=== PATIENT | male | born 1930 | race Two or more races ===

== ENCOUNTER 2017-10-19 18:20 | Inpatient (IN) | END 2017-10-26 19:30 | disposition home health service (06) | DRG 192 ==

== ENCOUNTER 2018-11-09 18:51 | Inpatient (IN) | payer MEDICARE, OTHER ==
[~2018-11-09] VITALS: Ht 165.1 cm; Wt 67.8 kg
[~2018-11-09 18:51] MED LIST: ACAR25TA8 PO; AMLO-147 PO; FENO145T37 PO; GABA100C14 PO; LEVO500T48 PO; LOSA50TA14 PO; MELO7.5T38 PO; METF500T24 PO; METO-335 PO; PRED10TA PO; SITA100T11 PO
[2018-11-09] MEDS ORDERED: TAMS-14 PO (23:02)
[2018-11-09] MEDS ORDERED: ACAR25TA8 PO (23:10)
[2018-11-09] MEDS ORDERED: ACET500C5 PO (23:10)
[2018-11-09] MEDS ORDERED: LEVO25TA6 PO (23:10)
[2018-11-09] MEDS ORDERED: SIMV20TA2 PO (23:10)
[2018-11-09] MEDS ORDERED: ALBU2.5V3 NEB (23:10)
[2018-11-09] MEDS ORDERED: ALBUTEROL/IPRATROPIUM (NEB) 3 ML AMP HHN PRN (23:30)
[2018-11-09 23:33] VITALS: Ht 165.1 cm; Wt 67.8 kg
[2018-11-09 23:37] VITALS: BP 146/70; PULSE 102; RESP 18
[2018-11-09] MEDS ORDERED: GLUCAGON 1 MG INJ IM PRN (23:45)
[2018-11-09] MEDS ORDERED: GLUCOSE GEL 15 GRAM TUBE PO PRN ×2 (23:45)
[2018-11-09] MEDS ORDERED: GLUCOSE GEL 15 GRAM TUBE BUCCAL PRN (23:45)
[2018-11-09] MEDS ORDERED: DEXTROSE 50% 50 ML SYRINGE IV PRN ×2 (23:45)
[2018-11-10 01:50] VITALS: BP 136/65; PULSE 85; RESP 18
[2018-11-10] MEDS: ACCU-CHEK XX SCH (02:00)
[2018-11-10] MEDS: PANTOPRAZOLE (EC) 40 MG TAB PO SCH (06:15)
[2018-11-10] MEDS: LEVOTHYROXINE 25 MCG TAB PO SCH (06:15)
[2018-11-10 07:37] VITALS: BP 129/57; PULSE 74; RESP 18
[2018-11-10] MEDS: ACETAMINOPHEN 325 MG TAB PO PRN (07:56)
[2018-11-10] MEDS: ACARBOSE 50 MG TAB PO SCH ×3 (08:00→17:09)
[2018-11-10] MEDS: INSULIN ASPART [NOVOLOG] 3 ML PEN SC SCH ×5 (08:19→20:39)
[2018-11-10] MEDS: GABAPENTIN 100 MG CAP PO SCH ×3 (08:28→20:35)
[2018-11-10] MEDS: METOPROLOL (XL) 25 MG TAB PO SCH (08:29)
[2018-11-10] MEDS: LINAGLIPTIN 5 MG TABLET PO SCH (08:29)
[2018-11-10] MEDS: LOSARTAN 50 MG TAB PO SCH (08:29)
[2018-11-10] MEDS ORDERED: NON-FORMULARY/PATIENT OWN MED (Sitagliptin* (Januvia*) 100 MG) PO SCH (09:00)
[2018-11-10] MEDS ORDERED: METHYLPREDNISOLONE 40 MG INJ IV SCH (09:00)
[2018-11-10] MEDS ORDERED: ACARBOSE 50 MG TAB PO SCH (09:00)
[2018-11-10 14:00] VITALS: BP 109/58; PULSE 74; RESP 18
--- NOTE | 2018-11-10 16:40 | QN ---
Documentation Comment pt seen and examined WILL RAZA MD November 10, 2018 16:40
[2018-11-10 19:46] VITALS: BP 143/71; PULSE 72; RESP 19
[2018-11-10] MEDS ORDERED: INSULIN GLARGINE [LANTus] (100 UNITS/ML) SYG SC SCH (20:00)
--- NOTE | 2018-11-10 20:59 | HP ---
DATE OF ADMISSION: 10/19/2017 CHIEF COMPLAINT: Shortness of breath. 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 on 11/08/2018 secondary to shortness of breath. According to the patient, currently , he said that he was having some headache. His blood pressure was high. He also had feeling short of breath as per [facility] notes 3 to 4 hours prior to presentation. He was able to walk 1 block wi th his cane before feeling short of breath. There, the patient had vital signs, showed temperature 3 7.3, heart rate 76, respirations 20, blood pressure 138/77. The patient was given prednisone nebs, R ocephin and azithromycin. The patient had a chest x-ray which was negative and CT which was negative for PE. The patient was transferred to [facility] due to insurance reasons. PAST MEDICAL HISTORY: 1. Diabetes. 2. Hypertension. 3. Hyperlipidemia. 4. Hypothyroidism. 5. Benign prostatic hypertrophy. 6. Interstitial lung disease, unclear etiology. 7. 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 HOME MEDICATIONS: 1. Albuterol. 2. Flomax 0.4. 3. Amlodipine 5. 4. Fenofibrate 134. 5. Losartan 50 every day. 6. Metoprolol 25 every day. 7. Simvastatin 20. 8. Gabapentin 100 t.i.d. 9. Acetaminophen. 10. Meloxicam 7.5. 11. Acarbose 25 t.i.d. with meals. 12. Levothyroxine 25. 13. Metformin 500 with meals. 14. Prednisone 20. 15. Januvia 100. SOCIAL HISTORY: No history of prior smoking, alcohol, drug use history. Lives with her niece at [facility]. ALLERGIES: NONE. FAMILY HISTORY: Noncontributory. REVIEW OF SYSTEMS: The patient complains of shortness of breath that has improved. Denies any chest pain. Denies any abdominal pain, nausea, vomiting, diarrhea. Denies any hematemesis, any melena, a ny bright red blood per rectum. PHYSICAL EXAMINATION: VITAL SIGNS: Currently, blood pressure 109/58, afebrile, heart rate 74, respirations 18, saturating 99% on 2 liters. GENERAL: The patient is awake, alert, oriented, does not appear to be in any acute distress. HEENT: Pupils equal, round, react to light. NECK: Supple. HEART: Regular rate and rhythm. LUNGS: A few rhonchi bilaterally. ABDOMEN: Soft, nontender, nondistended. EXTREMITIES: He has trace 1+ edema. DIAGNOSTIC DATA: BUN of 24, creatinine 0.70, glucose 206. LFTs within normal limit. LABORATORY DATA: White count 8.9, hemoglobin 13.0. ASSESSMENT AND PLAN: This is an 88-year-old male who presented with: 1. Shortness of breath likely secondary to interstitial lung disease exacerbation with possible comp onent of chronic obstructive pulmonary disease. No evidence of pulmonary embolism on preliminary thony d on CT PE. 2. History of interstitial lung disease. 3. Diabetes, uncontrolled. 4. Hypertension. 5. Hyperlipidemia. 6. Hypothyroidism. 7. Benign prostatic hypertrophy. PLAN: At this period of time, the patient is admitted to med/surg unit. The patient will be continu ed on prednisone nebs and also IV antibiotics and strict diabetic control. We will also get an ABG a nd a chest x-ray. Rest of the treatment will depend on the patient's hospitalization course. Dictated By: WILL JORGE/PEDRO Conf#: [id number] DID#: [id number] CC: ZHANG HARRIS MD;*End*
[2018-11-10] MEDS ORDERED: ATORVASTATIN 10 MG TAB PO SCH (21:00)
[2018-11-10] MEDS ORDERED: NON-FORMULARY/PATIENT OWN MED (Simvastatin 20 MG) PO SCH (21:00)
[2018-11-10] MEDS ORDERED: TAMSULOSIN (SR) 0.4 MG CAP PO SCH (21:00)
[2018-11-11 02:00] VITALS: BP 145/76; PULSE 78; RESP 20
[2018-11-11] MEDS: ACCU-CHEK XX SCH (02:00)
[2018-11-11] MEDS: LEVOTHYROXINE 25 MCG TAB PO SCH (06:18)
[2018-11-11] MEDS: PANTOPRAZOLE (EC) 40 MG TAB PO SCH (06:18)
[2018-11-11 07:52] VITALS: BP 132/65; PULSE 69; RESP 18
[2018-11-11] MEDS: INSULIN ASPART [NOVOLOG] 3 ML PEN SC SCH ×6 (08:17→17:13)
[2018-11-11] MEDS: ACARBOSE 50 MG TAB PO SCH ×3 (08:19→17:11)
[2018-11-11] MEDS: LINAGLIPTIN 5 MG TABLET PO SCH (08:19)
[2018-11-11] MEDS: GABAPENTIN 100 MG CAP PO SCH ×2 (08:19→12:37)
[2018-11-11] MEDS: LOSARTAN 50 MG TAB PO SCH (08:20)
[2018-11-11] MEDS: METOPROLOL (XL) 25 MG TAB PO SCH (08:20)
[2018-11-11] MEDS ORDERED: METHYLPREDNISOLONE 40 MG INJ IV SCH (09:00)
[2018-11-11] MEDS: ACETAMINOPHEN 325 MG TAB PO PRN (10:37)
[2018-11-11 10:39] VITALS: BP 149/72
--- NOTE | 2018-11-11 12:22 | PN ---
Date/Time of Note Date/Time of Note DATE: 11/11/18 TIME: 12:19 Assessment/Plan VTE Prophylaxis Risk score (from Ns)>0 risk: 3 SCD applied (from Ns): Yes SCD contraindicated: low risk/ambulating Pharmacological prophylaxis: NA/contraindicated Pharm contraindication: low risk/ambulating Lines/Catheters IV [facility] Urinary Cath still in place: No Assessment/Plan Hospital Course 1. Shortness of breath likely secondary to interstitial lung disease exacerbation with possible component of chronic obstructive pulmonary disease. No evidence of pulmonary embolism on preliminary read on CT PE. 2. Anemia 3. DM type II, uncontrolled 4. History of interstitial lung disease. 5. Hyperlipidemia. 6. Hypothyroidism. 7. Benign prostatic hypertrophy. 8. Hypertension. PLAN: At this period of time, the patient is admitted to Assessment/Plan -Sat on room air 96 -ambulation -dc today med/surg unit. -c/w prednisone wean -c/w nebs Result Diagram: 11/10/18 0536 11/10/18 0536 Results 24hrs Laboratory Tests Test 11/10/18 17:04 11/10/18 20:34 11/10/18 22:52 11/11/18 02:12 Bedside Glucose 301 H 257 H 204 Blood Gas Blood arterial Specimen Source Arterial Blood 11/10/2018 11:00: Date Drawn 59 PM Arterial Blood pH 7.378 (Temp corrected) Arterial Blood 44.6 pCO2 (Temp correct) Arterial Blood 79.9 L pO2 (Temp corrected) Arterial Blood 25.7 HCO3 Arterial Blood 0.2 Base Excess Arterial Blood 95.1 Oxygen Saturation Jose Eduardo Test ACCEPTAB Arterial Blood Right Radial Gas Puncture Site Arterial 0.2 Blood Carboxyhemo globin Arterial Blood 0.3 Methemoglobin Blood Gas A-a O2 67.1 H Differential Oxyhemoglobin 94.6 Percent Blood Gas 37.0 Temperature Blood Gas NASAL CANNULA Modality FiO2 28.0 Blood Gas MA Notified Whom Blood Gas 11/10/2018 11:10: Notified Time 33 PM Test 11/11/18 08:15 Bedside Glucose 221 H Subjective 24 Hr Interval Summary Constitutional: no complaints Respiratory: cough, shortness of breath; No no complaints, No pain, No pleuritic pain, No sputum, No wheezing, No other Exam/Review of Systems Exam Vitals Vital Signs Date Temp Pulse Resp B/P (MAP) Pulse Ox O2 O2 Flow FiO2 Time Delivery Rate 11/11/18 149/72 10:39 (97) 11/11/18 2.0 08:59 11/11/18 97.7 69 18 96 Nasal 07:52 Cannula Intake and Output 11/10/18 11/10/18 11/11/18 1515:00 23:00 07:00 IntakeIntake Total 560 ml 320 ml OutputOutput Total 600 ml 560 ml BalanceBalance -40 ml 320 ml -560 ml Constitutional: alert, oriented Head: normocephalic Eyes: nl conjunctiva Respiratory: clear to auscultation Cardiovascular: regular rate and rhythm Gastrointestinal: soft Genitourinary - Male: CVA tenderness; No nl penis, No nl scrotum, No discharge, No other Extremities: edema; No normal pulses, No calf tenderness, No cyanosis, No clubbing, No pitting pedal edema, No palpable cord, No tenderness, No other Results Results 24hrs Laboratory Tests Test 11/10/18 17:04 11/10/18 20:34 11/10/18 22:52 11/11/18 02:12 Bedside Glucose 301 H 257 H 204 Blood Gas Blood arterial Specimen Source Arterial Blood 11/10/2018 11:00: Date Drawn 59 PM Arterial Blood pH 7.378 (Temp corrected) Arterial Blood 44.6 pCO2 (Temp correct) Arterial Blood 79.9 L pO2 (Temp corrected) Arterial Blood 25.7 HCO3 Arterial Blood 0.2 Base Excess Arterial Blood 95.1 Oxygen Saturation Jose Eduardo Test ACCEPTAB Arterial Blood Right Radial Gas Puncture Site Arterial 0.2 Blood Carboxyhemo globin Arterial Blood 0.3 Methemoglobin Blood Gas A-a O2 67.1 H Differential Oxyhemoglobin 94.6 Percent Blood Gas 37.0 Temperature Blood Gas NASAL CANNULA Modality FiO2 28.0 Blood Gas NE Notified Whom Blood Gas 11/10/2018 11:10: Notified Time 33 PM Test 11/11/18 08:15 Bedside Glucose 221 H Medications Medication Current Medications Acarbose (Precose) 25 mg WITH MEALS PO Last administered on 11/11/18at 08:19; Admin Dose 25 MG; Start 11/10/18 at 08:00 Gabapentin (Neurontin) 100 mg TID PO Last administered on 11/11/18at 08:19; Admin Dose 100 MG; Start 11/10/18 at 09:00 Levothyroxine Sodium (Synthroid) 25 mcg BEFORE BREAKFAST PO Last administered on 11/11/18at 06:18; Admin Dose 25 MCG; Start 11/10/18 at 07:00 Losartan Potassium (Cozaar) 50 mg DAILY PO Last administered on 11/11/18at 08:20 ; Admin Dose 50 MG; Start 11/10/18 at 09:00 Metoprolol Succinate (Toprol Xl) 25 mg DAILY PO Last administered on 11/11/18at 08:20; Admin Dose 25 MG; Start 11/10/18 at 09:00 Tamsulosin HCl (Flomax) 0.4 mg DAILY@2100 PO Last administered on 11/10/18at 20:35; Admin Dose 0.4 MG; Start 11/10/18 at 21:00 Pantoprazole (Protonix Tab) 40 mg DAILY@06 PO Last administered on 11/11/18at 06:18; Admin Dose 40 MG; Start 11/10/18 at 06:00 Albuterol/ Ipratropium (Duoneb) 3 ml Q6H RESP THERAPY PRN HHN SHORTNESS OF BREATH; Start 11/09/18 at 23:30 Diagnostic Test (Pha) (Accu-Chek) 1 ea 02 XX ; Start 11/10/18 at 02:00 Insulin Aspart (Novolog Insulin Pen) NOVOLOG *MILD* ALGORITHM WITH MEALS BEDTIME SC Last administered on 11/11/18at 08:17; Admin Dose 2 UNIT; Start 11/10/18 at 08:00 Miscellaneous Information 1 ea NOTE XX ; Start 11/09/18 at 23:45 Glucose (Glutose) 15 gm Q15M PRN PO DECREASED GLUCOSE; Start 11/09/18 at 23:45 Glucose (Glutose) 22.5 gm Q15M PRN PO DECREASED GLUCOSE; Start 11/09/18 at 23:45 Dextrose (D50w Syringe) 25 ml Q15M PRN IV DECREASED GLUCOSE; Start 11/09/18 at 23:45 Dextrose (D50w Syringe) 50 ml Q15M PRN IV DECREASED GLUCOSE; Start 11/09/18 at 23:45 Glucagon (Glucagen) 1 mg Q15M PRN IM DECREASED GLUCOSE; Start 11/09/18 at 23:45 Glucose (Glutose) 15 gm Q15M PRN BUCCAL DECREASED GLUCOSE; Start 11/09/18 at 23:45 Atorvastatin Calcium (Lipitor) 10 mg DAILY@21 PO Last administered on 11/10/18at 20:35; Admin Dose 10 MG; Start 11/10/18 at 21:00 Linagliptin (Tradjenta) 5 mg DAILY PO Last administered on 11/11/18 08:19; Admin Dose 5 MG; Start 11/10/18 at 09:00 Acetaminophen (Tylenol Tab) 650 mg Q6H PRN PO MILD PAIN(1-3)OR ELEVATED TEMP Last administered on 11/11/18at 10:37; Admin Dose 650 MG; Start 11/10/18 at 08:00 Methylprednisolone Sodium Succinate (Solu-Medrol) 40 mg DAILY IV Last administered on 11/11/18 08:18; Admin Dose 40 MG; Start 11/11/18 at 09:00 Insulin Glargine (Lantus) 5 units DAILY@2000 SC Last administered on 11/10/18at 20:44; Admin Dose 5 UNITS; Start 11/10/18 at 20:00 Insulin Aspart (Novolog Insulin Pen) 3 unit WITH MEALS SC Last administered on 11/11/18 08:18; Admin Dose 3 UNIT; Start 11/10/18 at 18:00 TOSHIA CHERY November 11, 2018 12:22
[2018-11-11 14:00] VITALS: BP 124/65; PULSE 75; RESP 18
--- NOTE | 2018-11-11 14:29 | PDOCDIS ---
Discharge Instructions CONDITION [id number] Patient Condition: [id number] Stable HOME CARE INSTRUCTIONS: [id number] Diet Instructions: [id number] y Rest between Activity Avoid heavy lifting FOLLOW UP/APPOINTMENTS Follow-up Plan PCP 1 week TOSHIA CHERY November 11, 2018 14:29
[2018-11-11] MEDS ORDERED: NOVO3I SC (14:35)
[2018-11-11] MEDS ORDERED: LINA5TAB PO (14:35)
[2018-11-11] MEDS ORDERED: Insulin Glargine SC (14:35)
[2018-11-11] MEDS ORDERED: ATOR10TA65 PO (14:35)
[2018-11-11] MEDS ORDERED: MED4DP PO (14:35)
[2018-11-11] MEDS ORDERED: MUPI22OI2 TOP (14:35)
--- NOTE | 2018-11-11 18:10 | DS ---
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 According to the patient, currently, he said that he was having some headache. His blood pressure was high. He also had feeling short of breath as per [facility] notes 3 to 4 hours prior to presentation. He was able to walk 1 block with his cane before feeling short of breath. There, the patient had vital signs, showed temperature 37.3, heart rate 76, respirations 20, blood pressure 138/77. The patient was given prednisone nebs, Rocephin and azithromycin. The patient had a chest x-ray which was negative and CT which was negative for PE. The patient was transferred to [facility] due to insurance reasons. PAST MEDICAL HISTORY: 1. Diabetes. 2. Hypertension. 3. Hyperlipidemia. 4. Hypothyroidism. 5. Benign prostatic hypertrophy. 6. Interstitial lung disease, unclear etiology. 7. 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 Ds:1. Shortness of breath likely secondary to interstitial lung disease exacerbation with possible component of chronic obstructive pulmonary disease. No evidence of pulmonary embolism on preliminary read on CT PE. 2. Anemia 3. DM type II, uncontrolled 4. History of interstitial lung disease. 5. Hyperlipidemia. 6. Hypothyroidism. 7. Benign prostatic hypertrophy. 8. Hypertension. During hospitalization patient was admitted to med/surg unit. The patient was continued on prednisone nebs and also IV antibiotics and strict diabetic control. He demonstrated clinical improvement. ABG revealed normal pH and a decreased PO2 to 79.9 and a chest x-ray revealed: Extensive reticulonodular interstitial changes, grossly similar from prior examination. Nodules appear most prominent in the right upper lung. Scarring and pleural thickening in the left upper lung. Small left pleural effusion. Mild cardiomegaly. Prominent aortic calcification. 9 mm artifactual density versus sclerotic structure in the right humeral head. Before discharge patient was able to ambulate. Tolerate his diet. And his saturation on room air was 96%. Home Meds Active Scripts Insulin Aspart* (Novolog Insulin Pen*) 100 Unit/Ml Soln, 3 UNIT SC WITH MEALS for 30 Days Prov:TOSHIA CHERY 11/11/18 [Insulin Glargine] 100 UNITS/ML SOLN No Conflict Check, 5 UNITS SC DAILY@2000 for 30 Days Prov:TOSHIA CHERY 11/11/18 Atorvastatin (Atorvastatin) 10 Mg Tablet, 10 MG PO DAILY@21 for 30 Days, TAB Prov:TOSHIA CHERY 11/11/18 Methylprednisolone* (Medrol* DOSE PACK) 4 Mg/Dose-Pack Tab.ds.pk, 4 MG PO . DIRECTED for 7 Days, PACKET Prov:TOSHIA CHERY 11/11/18 Linagliptin (TRADJENTA) 5 Mg Tablet, 5 MG PO DAILY for 30 Days, TAB Prov:TOSHIA CHERY 11/11/18 Mupirocin* (Bactroban*) 2% -22 Gram Oint...g., 1 APPLIC TOP BID for MRSA for 14 Days, #1 TUB SITE OF APPLICATION: Prov:TOSHIA CHERY 11/11/18 Reported Medications Acarbose* (Precose*) 25 Mg Tablet, 25 MG PO WITH MEALS, TAB 11/09/18 Acetaminophen* (Tylophen*) 500 Mg Capsule, 500 MG PO TID PRN for PAIN, TAB 11/09/18 Albuterol Sulfate* (Albuterol Sulfate* Neb) 0.083%-3 Ml Neb, 5 MG NEB Q4H, #30 VIAL 11/09/18 Levothyroxine Sodium* (Levothyroxine Sodium*) 25 Mcg Tablet, 25 MCG PO BEFORE BREAKFAST, #30 TAB 11/09/18 Simvastatin (Simvastatin) 20 Mg Tablet, 20 MG PO QHS, #30 TAB 11/09/18 Tamsulosin Hcl* (Flomax*) 0.4 Mg Cap.er.24h, 0.4 MG PO DAILY, CAP 11/09/18 Losartan Potassium* (Losartan Potassium*) 50 Mg Tablet, 50 MG PO DAILY, TAB 10/19/17 Sitagliptin* (Januvia*) 100 Mg Tablet, 100 MG PO DAILY 10/19/17 Metformin Hcl* (Metformin Hcl*) 500 Mg Tablet, 500 MG PO WITH MEALS 10/19/17 Metoprolol Succinate* (Toprol XL*) 25 Mg Tab.sr.24h, 25 MG PO DAILY 10/19/17 Gabapentin* (Gabapentin*) 100 Mg Capsule, 100 MG PO TID 10/19/17 Fenofibrate Nanocrystallized* (Fenofibrate*) 145 Mg Tablet, 134 MG PO DAILY, TAB 10/19/17 Discontinued Reported Medications Meloxicam* (Meloxicam*) 7.5 Mg Tablet, 7.5 MG PO DAILY 10/19/17 Amlodipine Besylate* (Amlodipine Besylate*) 10 Mg Tablet, 5 MG PO DAILY 10/19/17 Acarbose* (Precose*) 25 Mg Tablet, 25 MG PO TID, TAB 10/19/17 Discontinued Scripts Levofloxacin* (Levaquin*) 500 Mg Tablet, 500 MG PO DAILY for 3 Days, TAB Prov:WILL RAZA MD 10/25/17 Prednisone* (Prednisone*) 10 Mg Tab, 20 MG PO DAILY for 7 Days, TAB Prov:WILL RAZA MD 10/25/17 Follow-up Plan PCP 1 week Primary Care Provider Not On Staff Doctor Pending Labs Laboratory Tests Test 11/10/18 20:34 11/10/18 22:52 11/11/18 02:12 11/11/18 08:15 Bedside 257 204 221 Glucose mg/dL (70-220) mg/dL (70-220) mg/dL (70-220) Blood Gas Blood arterial Specimen Source Arterial Blood 11/10/2018 11:0 Date Drawn 0:59 PM Arterial Blood 7.378 (7.350-7 pH .450) (Temp corrected ) Arterial Blood 44.6 pCO2 mmhg (35-45) (Temp correct) Arterial Blood 79.9 pO2 mmHG (80-90.0) (Temp corrected ) Arterial Blood 25.7 HCO3 mmol/L (22.0-2 6.0) Arterial Blood 0.2 Base Excess mmol/L (-3.0-3 ) Arterial Blood 95.1 Oxygen Saturati mmHG (95.0-100 on .0) Jose Eduardo Test ACCEPTAB Arterial Blood Right Radial Gas Puncture Site Arterial 0.2 Blood Carboxyhe % (0.0-3.0) moglobin Arterial Blood 0.3 Methemoglobin % (0.0-1.5) Blood Gas A-a 67.1 O2 mmHg (7.0-24.0 Differential ) Oxyhemoglobin 94.6 Percent % (93.0-99.0) Blood Gas 37.0 C Temperature Blood Gas NASAL CANNULA Modality FiO2 28.0 % Blood Gas [place] Notified Whom Blood Gas 11/10/2018 11:1 Notified Time 0:33 PM Test 11/11/18 12:26 11/11/18 17:09 Bedside 306 317 Glucose mg/dL (70-220) mg/dL (70-220) TOSHIA CHERY November 11, 2018 18:10
[2018-11-11 18:17] VITALS: BP 132/70; PULSE 88; RESP 21
== END 2018-11-11 18:25 | disposition still patient (30) | DRG 191 ==
LOC: 2NE 21:44 → 5EC 21:47
PROVIDERS: ADMIT Internal Medicine Nephrology; ATTEND Internal Medicine Nephrology
DX: J44.1 Chronic obstructive pulmonary disease with (acute) exacerbation (principal); J84.9 Interstitial pulmonary disease, unspecified; D64.9 Anemia, unspecified; E11.65 Type 2 diabetes mellitus with hyperglycemia; E78.5 Hyperlipidemia, unspecified; E03.9 Hypothyroidism, unspecified; I10 Essential (primary) hypertension; J62.8 Pneumoconiosis due to other dust containing silica; N40.0 Benign prostatic hyperplasia without lower urinary tract symptoms; Z79.84 Long term (current) use of oral hypoglycemic drugs; Z79.52 Long term (current) use of systemic steroids
CPT/HCPCS: 36600; 71045; 80053; 82803; 82962; 85025; 87081; J1815; J2920